=== PATIENT | female | born 1995 | race Caucasian/White ===

== ENCOUNTER 2019-04-08 01:52 | Emergency (ER) | payer OTHER ==
--- NOTE | 2019-04-08 03:46 | EDPHY ---
H & P Stated Complaint: ETOH Time Seen by Provider: 04/08/19 02:00 HPI/ROS: CHIEF COMPLAINT: Alcohol intoxication HISTORY OF PRESENT ILLNESS: Patient was found by bystanders to be severely intoxicated and therefore they called EMS system. Patient vomited several times. Patient denies any injuries, denies loss of consciousness, denies any recent trauma. Patient denies coingestion, patient denies suicidal or homicidal behavior. REVIEW OF SYSTEMS: 10 systems were reviewed and negative with the exception of the elements mentioned in the history of present illness. PAST MEDICAL HISTORY: None PAST SURGICAL HISTORY: None SOCIAL HISTORY: drinks alcohol occasionally PHYSICAL EXAM: General Appearance: Alert, well hydrated, appropriate, and non-toxic appearing. Head: Atraumatic without scalp tenderness or obvious injury Eyes: Pupils equal, round, reactive to light, no injection. Ears: Clear bilaterally, no perforation, normal landmarks Nose: Atraumatic, no rhinorrhea, clear. Throat: mucus membranes moist. Neck: Supple, non-tender, no lymphadenopathy. Respiratory: No retractions, no distress, no wheezes, and no accessory muscle use. Lungs are clear to auscultation bilaterally. Cardiovascular: Regular rate and rhythm, no murmurs, rubs, or gallops. Gastrointestinal: Abdomen is soft, non-tender, non-distended Musculoskeletal: Normal active ROM of all extremities, atraumatic. Neurological: Alert, appropriate, and interactive. Moves all extremities equally. Skin: No rashes, good turgor, no nodules on palpation. MEDICAL DECISION MAKING: I serially examined this patient since the patient's arrival here in the emergency department. The patient continues to become more and more sober with each examination. I serially questioned the patient and the patient's story given initially has not changed. The patient still denies any trauma, any head injury, and any illicit drug use. At this point, the patient is walking the department freely and is clinically sober. We're discharging the patient home with a sober family member in stable condition Source: Patient, EMS Exam Limitations: Intoxication - Medical/Surgical History Hx Asthma: Yes Hx Chronic Respiratory Disease: No Hx Diabetes: No Hx Cardiac Disease: No Hx Renal Disease: No Hx Cirrhosis: No Hx Alcoholism: No Hx HIV/AIDS: No Hx Splenectomy or Spleen Trauma: No Other PMH: asthma, anemia - Social History Smoking Status: Never smoked Constitutional: Initial Vital Signs Temperature (C) 35.8 C L 04/08/19 01:52 Heart Rate 77 04/08/19 01:52 Respiratory Rate 16 04/08/19 01:52 Blood Pressure 103/77 04/08/19 01:52 O2 Sat (%) 99 04/08/19 01:52 O2 Delivery Mode Room Air Allergies/Adverse Reactions: miconazole [From Monistat 1 Combo Pack] Allergy (Verified 04/08/19 02:01) Departure - Departure Disposition: Home, Routine, Self-Care Clinical Impression: Alcoholic intoxication Qualifiers: Complication of substance-induced condition: with delirium Qualified Code(s): F10.921 - Alcohol use, unspecified with intoxication delirium Vomiting Qualifiers: Vomiting type: unspecified Vomiting Intractability: non-intractable Nausea presence: with nausea Qualified Code(s): R11.2 - Nausea with vomiting, unspecified Condition: Good Instructions: Alcohol Intoxication (ED) Additional Instructions: Please return to the emergency department if your worse in any way. Referrals: Fco Constantino MD [Medical Doctor] - As per Instructions
[2019-04-08 06:38] VITALS: BP 102/63
== END 2019-04-08 06:37 | disposition home or self-care (01) ==
DX: F10.921 Alcohol use, unspecified with intoxication delirium (principal)